=== PATIENT | male | born 1975 | race Caucasian/White ===

== ENCOUNTER → 2020-11-07 | Outpatient (CLI) | payer BC | LOC: LAB 12:52 | DX: Z20.822 Contact with and (suspected) exposure to COVID-19 (principal) ==

== ENCOUNTER → 2021-02-15 | Outpatient (CLI) | payer BC ==
[2021-02-15 14:52] LABS: BASO # 0.04 K/mm3 (0.02-0.10); EOS # 0.25 K/mm3 (0.04-0.40); EOS % 3.7 % (0.0-4.0); HEMATOCRIT 48.4 % (42.0-52.0); HEMOGLOBIN 15.9 g/dL (13.5-18.0); LYMPH# 2.25 K/mm3 (1.50-4.00); MEAN CELL VOLUME 95 fl (78-100); MEAN CORPUSCULAR HEMOGLOBIN 31 pg (27-31); MEAN CORPUSCULAR HGB CONC 33 g/dL (33-37); MEAN PLATELET VOLUME 10.6 fl (7.4-10.4); MONO # 0.47 K/mm3 (0.20-0.80); NEU # 3.77 K/mm3 (1.40-6.50); PLATELET COUNT 202 K/mm3 (130-400); RED BLOOD COUNT 5.11 M/mm3 (4.20-5.60); WHITE BLOOD COUNT 6.8 K/mm3 (4.8-10.8)
[2021-02-15 15:01] LABS: ALBUMIN 4.2 g/dL (3.5-5.0); POTASSIUM 4.8 mmol/L (3.5-5.1)
[2021-02-15 15:02] LABS: SODIUM 140 mmol/L (136-145)
[2021-02-15 15:03] LABS: CALCIUM 9.8 mg/dL (8.3-10.5)
[2021-02-15 15:04] LABS: GLUCOSE 94 mg/dL (75-110); TOTAL PROTEIN 7.3 g/dL (6.4-8.3)
[2021-02-15 15:05] LABS: CARBON DIOXIDE 26 mmol/L (22-29)
[2021-02-15 15:06] LABS: TOTAL BILIRUBIN 0.5 mg/dL (0.2-1.2)
[2021-02-15 15:09] LABS: AST-SGOT 15 U/L (5-34)
[2021-02-15 15:10] LABS: ALT/SGPT 17 U/L (0-55)
[2021-02-15 15:41] LABS: TROPONIN-I < 0.03 ng/mL (<0.030)
[2021-02-15 16:11] LABS: ERYTHROCYTE SEDIMENTATION RATE 9 mm/hr (0-15)
== END ==
LOC: LAB 14:39
PROVIDERS: Nurse Practitioner
DX: R00.2 Palpitations (principal)

== ENCOUNTER → 2021-02-16 | Outpatient (CLI) | payer BC ==
[2021-02-16 16:16] LABS: D-DIMER 0.4 mg/L FEU (0.15-0.50)
== END ==
LOC: LAB 13:27
PROVIDERS: Nurse Practitioner
DX: R00.2 Palpitations (principal)